=== PATIENT | male | born 1960 | race American Indian/Alaskan Native ===

== ENCOUNTER 2017-10-19 09:39 | Emergency (ER) | payer OTHER ==
[2017-10-19 10:39] VITALS: BP 175/129
[2017-10-19 11:19] LABS: Hematocrit 47.6 % (35.5-45.6); Hemoglobin 15.9 gm/dl (11.8-15.2); Mean Corpuscular HGB Conc 33 % (32-34); Mean Corpuscular Hemoglobin 26 pg (28-32); Mean Corpuscular Volume 79 fl (84-94); Platelet Count 222 K/mm3 (140-440); Red Cell Distribution Width 15.1 % (13.2-15.2)
[2017-10-19 11:29] LABS: INR 0.84 (0.87-1.13)
[2017-10-19 11:30] LABS: Partial Thromboplastin Time 25.1 Sec. (24.2-36.6)
[2017-10-19 11:41] LABS: Calcium 9.1 mg/dL (8.4-10.2)
[2017-10-19 13:47] LABS: Band Neutrophils # (Manual) 0.1 K/mm3; Basophils % (Manual) 0 % (0.0-1.8); Total Cells Counted 100
[2017-10-19 13:48] LABS: Platelet Estimate Consistent w Auto; RBC Morphology Normal
== END 2017-10-19 14:06 | disposition left against medical advice (07) ==
LOC: ED 09:39
DX: R10.9 Unspecified abdominal pain (principal); Z53.21 Procedure and treatment not carried out due to patient leaving prior to being seen by health care provider
CPT/HCPCS: 36415; 80048; 84484; 85007; 85025; 85610; 85670; 85730; 93005; 93010